=== PATIENT | male | born 1945 | race Caucasian/White ===

== ENCOUNTER 2017-09-10 16:55 | Inpatient (IN) | payer MEDICARE ==
[~2017-09-10] VITALS: Ht 185.4 cm; Wt 79.5 kg
[~2017-09-10 16:55] MED LIST: ALLO300T PO; AMIO400T4 PO; AMLO2.5T PO; ASPI-614 PO; ATOR40TA78 PO; CARV-39 PO; CARV6.252 PO; CLOP75TA PO; DOCU100C33 PO; FINA5TAB4 PO; GLIP5TAB10 PO; HYDR-3245 PO; HYDR25TA6 PO; LISI40TA PO; METF10002 PO; MULT-696 PO; OMEG-14 PO; TAMS0.4C2 PO
[2017-09-10 17:25] LABS: HEMOGLOBIN 13.4 g/dL (13.7-18.0); WHITE BLOOD COUNT 5.2 x10^3/uL (3.4-10)
[2017-09-10] MEDS ORDERED: ONDANSETRON 2MG/ML, 2ML IVPush ONE (17:30)
[2017-09-10 17:35] LABS: ASPARTATE AMINO TRANSFERASE 26 U/L (15-37); BLOOD UREA NITROGEN 11 mg/dL (7-18)
[2017-09-10] MEDS ORDERED: NITROPRUSSIDE 50 MG in SODIUM CHLORIDE 0.9% 250 ML IV PRN (18:12)
[2017-09-10] MEDS ORDERED: MORPHINE SULFATE 4 MG/ML, 1ML ONE ×2 (18:21→21:09)
[2017-09-10] MEDS ORDERED: ONDANSETRON 2MG/ML, 2ML ONE (18:21)
[2017-09-10] MEDS: MORPHINE SULFATE 4 MG/ML, 1ML IVPush PRN ×2 (18:26→21:12)
[2017-09-10] MEDS ORDERED: ALLO300T PO (18:40)
[2017-09-10] MEDS ORDERED: METF500T4 PO (18:42)
[2017-09-10] MEDS ORDERED: CLOP75TA52 PO (18:46)
[2017-09-10] MEDS ORDERED: MIDAZOLAM 1 MG/ML, 2ML IVPush ONE (19:30)
[2017-09-10] MEDS: NITROPRUSSIDE 50 MG in SODIUM CHLORIDE 0.9% 250 ML IV PRN ×4 (19:41→21:00)
[2017-09-10 20:17] VITALS: BP 199/101
[2017-09-10 20:33] VITALS: BP 196/82
[2017-09-10 20:49] VITALS: BP 164/89
[2017-09-10 20:54] LABS: ASPARTATE AMINO TRANSFERASE 31 U/L (15-37); BLOOD UREA NITROGEN 10 mg/dL (7-18)
[2017-09-10 21:00] LABS: HEMATOCRIT 42.3 % (39.2-51.8); HEMOGLOBIN 14.6 g/dL (13.7-18.0); WHITE BLOOD COUNT 11.5 x10^3/uL (3.4-10)
[2017-09-10] MEDS ORDERED: FILTER 0.22 MICRON IV ONE (21:00)
[2017-09-10] MEDS ORDERED: [UNRECOGNIZED DRUG - OTHER] IVPB ONE (21:00)
[2017-09-10 21:05] VITALS: BP 150/99
[2017-09-10 21:44] VITALS: BP 158/73
[2017-09-10] MEDS ORDERED: morphine SULFATE 125 MG in SODIUM CHLORIDE 0.9% 237.5 ML IV PRN (21:48)
[2017-09-10] MEDS: SODIUM CHLORIDE 0.9% 1,000 ML IV SCH (22:05)
[2017-09-11] MEDS: SODIUM CHLORIDE 0.9% 1,000 ML IV SCH (06:23)
== END 2017-09-11 09:00 | disposition expired | DRG 64 ==
LOC: ED 17:21 → EDIP 20:23 → 3NW 23:00
PROVIDERS: ADMIT Surgery; ATTEND Family Medicine
PROC: 30233R1 Transfusion of Nonautologous Platelets into Peripheral Vein, Percutaneous Approach (ICD-10-PCS; principal; 2017-09-10)
DX: I61.9 Nontraumatic intracerebral hemorrhage, unspecified (principal); J96.00 Acute respiratory failure, unspecified whether with hypoxia or hypercapnia; D68.9 Coagulation defect, unspecified; I16.9 Hypertensive crisis, unspecified; E11.51 Type 2 diabetes mellitus with diabetic peripheral angiopathy without gangrene; E78.5 Hyperlipidemia, unspecified; I10 Essential (primary) hypertension; I25.10 Atherosclerotic heart disease of native coronary artery without angina pectoris; I25.2 Old myocardial infarction; I35.0 Nonrheumatic aortic (valve) stenosis; M10.9 Gout, unspecified; R29.810 Facial weakness; Z51.5 Encounter for palliative care; Z79.01 Long term (current) use of anticoagulants; Z86.73 Personal history of transient ischemic attack (TIA), and cerebral infarction without residual deficits; Z87.891 Personal history of nicotine dependence; Z95.1 Presence of aortocoronary bypass graft; Z95.5 Presence of coronary angioplasty implant and graft; Z66 Do not resuscitate
CPT/HCPCS: 36415; 70450; 71010; 80047; 80053; 83735; 84100; 85025; 85610; 85651; 85730; 86140; 86850; 86900; 93005; 96365; 96366; 96375; 99292; J2405; J2270; J7050; P9035